=== PATIENT | female | born 1965 | race Caucasian/White ===

== ENCOUNTER 2018-07-04 17:10 | Outpatient (REF) | payer OTHER, SELFPAY ==
[2018-07-04 21:27] LABS: Anion Gap 9.7 mmol/L (3-11); BUN 17 mg/dL (7-18); CO2 28.3 mmol/L (21.0-32.0); CREATININE 0.65 mg/dL (0.55-1.02); Calcium 9.3 mg/dL (8.5-10.1); Chloride 100 mmol/L (98-107); Cholesterol 188 mg/dL (50-200); Glucose 103 mg/dL (70-100); HDL Cholesterol 77 mg/dL (40-60); LDL CHOLESTEROL 91 mg/dL (<100); Potassium 3.4 mmol/L (3.5-5.1); Sodium 138 mmol/L (136-145); Triglyceride 60 mg/dL (30-150)
== END 2018-07-04 17:30 ==
LOC: NCHCN 17:10
PROVIDERS: PCP Physician Assistant; Visit Provider Specialist/Technologist Athletic Trainer
DX: Z00.00 Encounter for general adult medical examination without abnormal findings (principal); Z13.220 Encounter for screening for lipoid disorders; Z13.228 Encounter for screening for other metabolic disorders
CPT/HCPCS: 80048; 80061; 83721

== ENCOUNTER 2019-07-03 18:41 | Outpatient (REF) | payer OTHER, SELFPAY ==
[2019-07-03 22:33] LABS: Anion Gap 11.1 mmol/L (3-11); BUN 17 mg/dL (7-18); CO2 26.9 mmol/L (21.0-32.0); CREATININE 0.68 mg/dL (0.55-1.02); Calcium 9.4 mg/dL (8.5-10.1); Chloride 101 mmol/L (98-107); Glucose 100 mg/dL (74-106); HDL Cholesterol 71 mg/dL (40-60); LDL CHOLESTEROL 101 mg/dL (<100); Potassium 3.4 mmol/L (3.5-5.1); Sodium 139 mmol/L (136-145)
== END 2019-07-03 19:01 ==
LOC: NCHCN 18:41
PROVIDERS: PCP Physician Assistant; Visit Provider Nurse Practitioner Family
DX: I10 Essential (primary) hypertension (principal); J44.9 Chronic obstructive pulmonary disease, unspecified; F17.200 Nicotine dependence, unspecified, uncomplicated
CPT/HCPCS: 80048; 83721; 83718

== ENCOUNTER 2019-09-11 16:20 | Outpatient (REF) | payer OTHER, SELFPAY ==
--- NOTE | 2019-09-11 15:50 | PAPFT_PTH ---
PATIENT: Alvarado Tuttle LOC: [facility]#:[id number] AGE/SX: 53/F ROOM: RE09/11/[address]: Lis Pop : 1965 BED: DIS: 09/11/2019 SPEC #: [id number] RECD: 09/12/19 12:39 STATUS: ADILSON REQ #: [id number] DEONTE: 09/11/19 15:[address]: Lis Pop DEPT: [facility] Cytology RECD BY: Minal Duncan ENTERED: 09/12/19 12:39 SP TYPE: PAPFT OTHR DR: Bridgett Blanchard Tissues: 1 - CX/ENDOCX FOR PAP SMEARS Procedures: PAP THIN PREP/[facility] Screening HPV DNA PROBE Comments: [id number]
== END 2019-09-11 16:40 ==
LOC: NCHCN 16:20
PROVIDERS: PCP Physician Assistant; Referring Provider Physician Assistant; Visit Provider Nurse Practitioner Family
DX: Z12.4 Encounter for screening for malignant neoplasm of cervix (principal); Z01.419 Encounter for gynecological examination (general) (routine) without abnormal findings; Z11.51 Encounter for screening for human papillomavirus (HPV)
CPT/HCPCS: 88142; 87624

== ENCOUNTER 2020-09-13 16:51 | Outpatient (REF) | payer OTHER, SELFPAY ==
[2020-09-16 16:45] LABS: COVID-19 RT-PCR UVMMC Result Positive (Negative)
== END 2020-09-13 16:52 | disposition home or self-care (01) ==
LOC: NCHCN 16:51
PROVIDERS: PCP Physician Assistant; Visit Provider Physician Assistant Medical
DX: J06.9 Acute upper respiratory infection, unspecified (principal); J02.9 Acute pharyngitis, unspecified
CPT/HCPCS: U0003

== ENCOUNTER 2020-09-20 04:36 | Outpatient (CLI) | payer OTHER, SELFPAY ==
[2020-09-20 09:00] VITALS: BP 135/85; PULSE 77; RESP 17; TEMP 37.4; O2SAT 97
[2020-09-20 09:40] VITALS: BP 128/87; PULSE 78; RESP 18; TEMP 37.7; O2SAT 96
[2020-09-20 09:55] VITALS: BP 132/84; PULSE 73; RESP 17; TEMP 37.7; O2SAT 96
[2020-09-20] MEDS: Normal Saline Flush 10 ML SYR IVP (10:24)
[2020-09-20] MEDS: Normal Saline 500 ML 30 ML IV (10:24)
[2020-09-20 10:25] VITALS: BP 135/83; PULSE 71; RESP 20; TEMP 37; O2SAT 96
[2020-09-20 10:55] VITALS: BP 126/71; PULSE 77; RESP 18; TEMP 36.9; O2SAT 98
== END 2020-09-20 04:37 | disposition home or self-care (01) ==
PROVIDERS: PCP Physician Assistant; Visit Provider Family Medicine
DX: U07.1 COVID-19 (principal)
CPT/HCPCS: 96365

== ENCOUNTER 2021-05-27 16:30 | Outpatient (REF) | payer OTHER, SELFPAY ==
[2021-05-27 19:59] LABS: Anion Gap 6.9 mmol/L (3-11); BUN 15 mg/dL (7-18); CO2 29.1 mmol/L (21.0-32.0); CREATININE 0.6 mg/dL (0.55-1.02); Calcium 9.1 mg/dL (8.5-10.1); Chloride 105 mmol/L (98-107); Glucose 87 mg/dL (74-106); Sodium 141 mmol/L (136-145)
== END 2021-05-27 16:31 | disposition home or self-care (01) ==
LOC: NCHCN 16:30
PROVIDERS: Visit Provider Nurse Practitioner Family
DX: Z00.00 Encounter for general adult medical examination without abnormal findings (principal)
CPT/HCPCS: 80048

== ENCOUNTER 2022-06-29 18:49 | Outpatient (REF) | payer OTHER, SELFPAY ==
[2022-06-29 19:41] LABS: BUN 14 mg/dL (7-18); CREATININE 0.7 mg/dL (0.55-1.02); Calcium 8.8 mg/dL (8.5-10.1); Chloride 103 mmol/L (98-107); Estimated GFR 100.81 (mL/min/1.73m2); Glucose 100 mg/dL (74-106); HDL Cholesterol 62 mg/dL (40-60); LDL CHOLESTEROL 81 mg/dL (<100); Potassium 3.9 mmol/L (3.5-5.1); Sodium 139 mmol/L (136-145)
== END 2022-06-29 18:50 | disposition home or self-care (01) ==
LOC: NCHCN 18:49
PROVIDERS: Visit Provider Nurse Practitioner Family
DX: Z00.00 Encounter for general adult medical examination without abnormal findings (principal); Z13.1 Encounter for screening for diabetes mellitus; Z13.220 Encounter for screening for lipoid disorders; Z13.228 Encounter for screening for other metabolic disorders
CPT/HCPCS: 80048; 83721; 83036; 83718

== ENCOUNTER 2023-08-17 15:00 | Outpatient (REF) | payer OTHER, SELFPAY ==
[2023-08-17 20:04] LABS: Anion Gap 8.1 mmol/L (3-11); BUN 19 mg/dL (7-18); CO2 27.9 mmol/L (21.0-32.0); CREATININE 0.8 mg/dL (0.55-1.02); Calcium 9.4 mg/dL (8.5-10.1); Chloride 104 mmol/L (98-107); Estimated GFR 85.35 (mL/min/1.73m2); Glucose 112 mg/dL (74-106); HDL Cholesterol 78 mg/dL (40-60); LDL CHOLESTEROL 95 mg/dL (<100); Potassium 4.5 mmol/L (3.5-5.1); Sodium 140 mmol/L (136-145)
== END 2023-08-17 15:01 | disposition home or self-care (01) ==
LOC: NCHCN 15:00
PROVIDERS: Visit Provider Nurse Practitioner Family
DX: Z00.00 Encounter for general adult medical examination without abnormal findings (principal); I10 Essential (primary) hypertension
CPT/HCPCS: 80048; 83721; 83718

== ENCOUNTER 2023-10-28 19:22 | Outpatient (REF) | payer OTHER, SELFPAY ==
[2023-10-30 14:19] LABS: Chlamydia Result Negative (Negative); GC Result Negative (Negative)
== END 2023-10-28 19:23 | disposition home or self-care (01) ==
LOC: NCHCN 19:22
PROVIDERS: Visit Provider Nurse Practitioner Family
DX: N89.8 Other specified noninflammatory disorders of vagina (principal); R10.2 Pelvic and perineal pain; N39.0 Urinary tract infection, site not specified
CPT/HCPCS: 87077; 87491; 87591; 87086; 87186; 87480; 87510; 87660

== ENCOUNTER 2023-12-29 19:37 | Outpatient (REF) | payer OTHER, SELFPAY | END 2023-12-29 19:38 | disposition home or self-care (01) | LOC: NCHCN 19:37 | PROVIDERS: PCP Nurse Practitioner Family; Visit Provider Nurse Practitioner Family | DX: N39.0 Urinary tract infection, site not specified (principal); B96.89 Other specified bacterial agents as the cause of diseases classified elsewhere; R82.89 Other abnormal findings on cytological and histological examination of urine | CPT/HCPCS: 87077; 87086; 87186 ==